=== PATIENT | male | born 1965 | race Caucasian/White ===

== ENCOUNTER 2019-10-03 08:16 | Outpatient (CLI) | payer OTHER ==
--- NOTE | 2019-10-03 10:21 | Magnetic Resonance Report ---
MRI RIGHT HIP WITHOUT CONTRAST INDICATION / CLINICAL INFORMATION: MAIN: INJURY OF UNSPECIFIED NERVE AT HIP AND THIGH LEVEL, RT BUTTOCK PAIN. COMPARISON: None available. TECHNIQUE: Multisequence, multiplanar images were obtained. FINDINGS: ACETABULAR LABRUM: No significant abnormality. ARTICULAR CARTILAGE: No significant abnormality. JOINT SPACE AND CAPSULE: No significant abnormality. GLUTEAL MUSCLES/TENDONS: No significant abnormality. ILIOPSOAS MUSCLES/TENDON: No significant abnormality. PROXIMAL HAMSTRING TENDONS: No significant abnormality. GROIN MUSCLES/TENDONS: No significant abnormality. SUBCUTANEOUS SOFT TISSUES: No significant abnormality. BONES: No significant bone marrow edema. No fracture. No osseous lesion. SACROILIAC JOINT(S): No significant abnormality. LOWER LUMBAR SPINE: Moderate discogenic degenerative disease L5-S1 SOFT TISSUE WITHIN PELVIS: No acute findings. ADDITIONAL FINDINGS: None. IMPRESSION: 1. No significant abnormality. Signer Name: Brent Chandler MD Signed: 10/03/2019 10:16 AM Workstation Name: [id number]
== END 2019-10-03 08:17 | disposition home or self-care (01) ==
LOC: MRI 08:16
PROVIDERS: ATTEND Internal Medicine
DX: S74.91XA Injury of unspecified nerve at hip and thigh level, right leg, initial encounter (principal); M47.817 Spondylosis without myelopathy or radiculopathy, lumbosacral region; X58.XXXA Exposure to other specified factors, initial encounter; Y93.89 Activity, other specified; Y92.89 Other specified places as the place of occurrence of the external cause; Y99.8 Other external cause status
CPT/HCPCS: 73721